=== PATIENT | male | born 1950 | race Hispanic/Latino ===

== ENCOUNTER → 2024-11-23 | Outpatient (CLI) | payer OTHER ==
[2024-11-23 15:27] LABS: CREATININE 1.2 mg/dL (0.5-1.3); GLOMERULAR FILTR. RATE CALC 63.0 mL/min (>90); UREA NITROGEN, BLOOD 23.0 mg/dL (7-18)
== END | disposition home or self-care (01) ==
LOC: LAB 14:34
PROVIDERS: ATTEND Thoracic Surgery (Cardiothoracic Vascular Surgery)
DX: I34.0 Nonrheumatic mitral (valve) insufficiency (principal)
CPT/HCPCS: 36415; 82565; 84520

== ENCOUNTER → 2024-11-27 | Outpatient (CLI) | payer OTHER ==
[~2024-11-27] MED LIST: IOHEXOL-350 75 ML VIAL IV ONE
--- NOTE | 2024-11-27 12:30 | HMCIMG ---
EXAM: CTA Chest with Intravenous Contrast CLINICAL HISTORY: 74-year-old male with nonrheumatic mitral valve insufficiency TECHNIQUE: Axial CTA images of the chest with intravenous contrast. Three-dimensional MIP/volume rendered reformations were performed. Dose reduction technique was used including one or more of the following: automated exposure control, adjustment of mA and kV according to patient size, and/or iterative reconstruction. CONTRAST: 77 mL of IV contrast COMPARISON: None provided. FINDINGS: PULMONARY ARTERIES: There is no intraluminal filling defect suspicious for PE. Pulmonary trunk measures 3.8 cm in diameter suggesting pulmonary artery hypertension. Negative for pulmonary embolism. AORTA: Ectatic aorta. Atherosclerotic changes of the aorta. Bilaterally ascending aorta measures 3.0 cm in diameter. LUNGS: Scarring and atelectasis in the lower lobes. Areas of bronchiectasis in the lower lobes. PLEURAL SPACES: Moderate right pleural effusion. Bilateral apical pleural thickening. HEART AND MEDIASTINUM: Cardiomegaly. Atherosclerotic changes of the coronary arteries. LYMPH NODES: No lymphadenopathy. BONES: Mild degenerative changes in the thoracic spine. CHEST WALL AND UPPER ABDOMEN: Images through the upper abdomen are unremarkable. The chest wall is unremarkable. IMPRESSION: 1. No evidence of pulmonary embolism. 2. Cardiomegaly, and findings suggestive of pulmonary artery hypertension. 3. Ectatic aorta and atherosclerotic aorta and coronary arteries. 4. Bilateral apical pleural thickening, scarring, and atelectasis in the lower lobes with areas of bronchiectasis. 5. Moderate right pleural effusion. /[place]
== END | disposition home or self-care (01) ==
LOC: RAH 07:52
PROVIDERS: ATTEND Thoracic Surgery (Cardiothoracic Vascular Surgery)
DX: J90 Pleural effusion, not elsewhere classified (principal); J47.9 Bronchiectasis, uncomplicated; I34.0 Nonrheumatic mitral (valve) insufficiency; I77.810 Thoracic aortic ectasia; I70.0 Atherosclerosis of aorta; J98.4 Other disorders of lung; J98.11 Atelectasis; I25.10 Atherosclerotic heart disease of native coronary artery without angina pectoris; M47.814 Spondylosis without myelopathy or radiculopathy, thoracic region
CPT/HCPCS: 71275; Q9967

== ENCOUNTER 2025-04-15 06:50 | Day surgery (SDC) | payer OTHER ==
[2025-04-15] VITALS (10 sets, daily range): BP systolic 78–146; BP diastolic 40–94; PULSE 73–84; RESP 16–18; TEMP 97–97.7
[~2025-04-15] VITALS: Ht 188 cm; Wt 40.8 kg
[~2025-04-15 06:50] MED LIST changes: +0.9%NACL 1000ML 1,000 ML IV ONE; -IOHEXOL-350 75 ML VIAL IV ONE
== END 2025-04-15 10:20 | disposition home or self-care (01) ==
LOC: DAH 06:50 → ENDO 06:50
PROVIDERS: ATTEND Internal Medicine
DX: R63.4 Abnormal weight loss (principal); K29.50 Unspecified chronic gastritis without bleeding; K44.9 Diaphragmatic hernia without obstruction or gangrene; I12.9 Hypertensive chronic kidney disease with stage 1 through stage 4 chronic kidney disease, or unspecified chronic kidney disease; N18.30 Chronic kidney disease, stage 3 unspecified; Z98.890 Other specified postprocedural states; Z68.1 Body mass index [BMI] 19.9 or less, adult
CPT/HCPCS: 43239; J7030 ×2; J2704; A4620; G0121; A4215 ×2; A4223; A4657; A7002; A4222; A4221; A4663; A4606; 45378; J3490

== ENCOUNTER 2025-04-16 07:21 | Day surgery (SDC) | payer OTHER ==
[2025-04-16] VITALS (10 sets, daily range): BP systolic 97–148; BP diastolic 41–73; PULSE 61–74; RESP 16–18; TEMP 97.2–97.9
[~2025-04-16] VITALS: Ht 188 cm; Wt 40.8 kg
[~2025-04-16 07:21] MED LIST changes: -0.9%NACL 1000ML 1,000 ML IV ONE; +AMLO-257 PO; +APIX5TAB PO; +ATOR40TA69 PO; +FURO20TA4 PO; +METO-409 PO; +PANT40TA54 PO; +POTA-202 PO
[2025-04-16] MEDS: 0.9%NACL 1000ML 1,000 ML IV ONE (08:52)
== END 2025-04-16 13:33 ==
LOC: ENDO 07:21 → DAH 07:21 → ENDO 13:33
PROVIDERS: ATTEND Internal Medicine
DX: R63.4 Abnormal weight loss (principal); K57.30 Diverticulosis of large intestine without perforation or abscess without bleeding; D12.3 Benign neoplasm of transverse colon; I12.9 Hypertensive chronic kidney disease with stage 1 through stage 4 chronic kidney disease, or unspecified chronic kidney disease; N18.30 Chronic kidney disease, stage 3 unspecified; E78.5 Hyperlipidemia, unspecified; F10.10 Alcohol abuse, uncomplicated; Z68.1 Body mass index [BMI] 19.9 or less, adult; Z98.890 Other specified postprocedural states
CPT/HCPCS: 45380; 45385; J7030; J2704; A4620; A4215 ×2; A4223; A4222; A4221; A4663; A4606; J3490

== ENCOUNTER → 2025-04-29 | Outpatient (CLI) | payer OTHER ==
[2025-04-29 14:47] LABS: IMMATURE GRANULOCYTE ABSOLUTE 0.02 K/uL (0-1); NUCLEATED RED BLOOD CELLS 0.0 % (0.0-0.19); PLATELET COUNT (AUTO) 187 K/uL (130-400); RED BLOOD CELL COUNT(AUTO) 4.18 MIL/uL (4.50-6.20); RED CELL DISTRIBUTION WIDTH 15.5 % (11.0-15.5); WHITE BLOOD COUNT (AUTO) 6.6 K/uL (4.8-10.8)
[2025-04-29 14:55] LABS: INR 1.22 (0.85-1.15)
[2025-04-29 15:06] LABS: % IRON SATURATION 12.6 % (30-44); IRON, SERUM 51.0 mcg/dL (65-175)
[2025-04-29 15:11] LABS: ASPARTATE AMINOTRANSFERASE 20.0 U/L (10-37); CREATININE 1.5 mg/dL (0.5-1.3); GLOMERULAR FILTR. RATE CALC 48.0 mL/min (>90); GLUCOSE,RANDOM 128.0 mg/dL (70-105); SODIUM SERUM 140.0 mmol/L (136-145); TOTAL PROTEIN, SERUM 7.3 g/dL (6.0-8.3); UREA NITROGEN, BLOOD 28.0 mg/dL (7-18)
== END | disposition home or self-care (01) ==
LOC: LAB 13:51
PROVIDERS: ATTEND Internal Medicine Gastroenterology
DX: D12.6 Benign neoplasm of colon, unspecified (principal); K44.9 Diaphragmatic hernia without obstruction or gangrene; K29.30 Chronic superficial gastritis without bleeding; K57.30 Diverticulosis of large intestine without perforation or abscess without bleeding; R63.4 Abnormal weight loss; R53.83 Other fatigue; I27.20 Pulmonary hypertension, unspecified; I12.9 Hypertensive chronic kidney disease with stage 1 through stage 4 chronic kidney disease, or unspecified chronic kidney disease; N18.30 Chronic kidney disease, stage 3 unspecified; F10.10 Alcohol abuse, uncomplicated; Z98.890 Other specified postprocedural states; Z79.899 Other long term (current) drug therapy; Z68.1 Body mass index [BMI] 19.9 or less, adult
CPT/HCPCS: 36415; 80053; 82378; 82728; 83540; 83550; 85025; 85610; 86316